=== PATIENT | male | born 1950 | race Caucasian/White ===

== ENCOUNTER 2020-10-27 16:28 | Inpatient (IN) ==
[2020-10-28] MEDS: *HR* OxyCODONE/APAP 5/325 TABLET PO PRN (20:31)
[2020-10-29 04:58] LABS: Basophils % 0.7 %; Eosinophils # 0.2 K/mcL (0.0-0.6); Eosinophils % 3.7 %; Hemoglobin 10.7 g/dL (12.9-16.9); Immature Granulocytes % 0.5 % (0-4); Lymphocytes # 0.8 K/mcL (0.6-4.6); Mean Corpuscular HGB Conc 32.4 g/dL (31.6-35.5); Mean Corpuscular Hemoglobin 26.4 pg (28.0-33.3); Mean Corpuscular Volume 81.5 fL (83.0-100.0); Mean Platelet Volume 9.6 fL (9.4-12.4); Monocytes # 0.3 K/mcL (0.0-1.3); Monocytes % 5.5 %; Neutrophils # 4.6 K/mcL (1.6-8.9); Platelet Count 144 K/mcL (140-400); Red Blood Count 4.05 M/mcL (4.19-5.50); Red Cell Distribution Width 15.4 % (11.5-14.5); Segmented Neutrophils % 75.6 %
[2020-10-29 05:20] LABS: BUN/Creatinine Ratio 22 (6-26); Blood Urea Nitrogen 14 mg/dL (8-23); Calcium 7.8 mg/dL (8.6-10.3); Carbon Dioxide 27 mEq/L (23-29); Chloride 102 mEq/L (98-107); Glucose 95 mg/dL (70-105); Osmolality,Calculated 282 (280-300); Potassium 3.7 mEq/L (3.5-5.1); Sodium 136 mEq/L (136-145); eGFR For African Americans > 60 (> 60); eGFR For Non-African Americans > 60 (> 60)
[2020-10-29] MEDS: *HR* Enoxaparin 40 MG/0.4 ML SYRINGE SQ SCH (05:35)
[2020-10-29] MEDS: *HR* OxyCODONE/APAP 5/325 TABLET PO PRN ×2 (05:35→20:05)
[2020-10-29] MEDS: amLODIPine 5 MG TABLET PO SCH (05:35)
[2020-10-29] MEDS: atenoloL 25 MG TABLET PO SCH (09:47)
[2020-10-30] MEDS: *HR* OxyCODONE/APAP 5/325 TABLET PO PRN ×3 (06:37→20:25)
[2020-10-30] MEDS: *HR* Enoxaparin 40 MG/0.4 ML SYRINGE SQ SCH (06:38)
[2020-10-30] MEDS: atenoloL 25 MG TABLET PO SCH (09:00)
[2020-10-30] MEDS: amLODIPine 5 MG TABLET PO SCH (09:01)
[2020-10-31] MEDS: *HR* Enoxaparin 40 MG/0.4 ML SYRINGE SQ SCH (05:33)
[2020-10-31] MEDS: atenoloL 25 MG TABLET PO SCH (08:56)
[2020-10-31] MEDS: amLODIPine 5 MG TABLET PO SCH (08:57)
[2020-10-31] MEDS: *HR* OxyCODONE/APAP 5/325 TABLET PO PRN ×3 (09:02→21:29)
[2020-10-31] MEDS ORDERED: amLODIPine 5 MG TABLET PO SCH (13:07)
[2020-10-31] MEDS: 0.9 % Sodium Chloride 1,000 ML IVC SCH (15:00)
[2020-11-01] MEDS: 0.9 % Sodium Chloride 1,000 ML IVC SCH ×2 (01:15→11:36)
[2020-11-01 04:25] LABS: Hematocrit 32.6 % (37.5-50.1); Hemoglobin 10.8 g/dL (12.9-16.9); Mean Corpuscular HGB Conc 33.1 g/dL (31.6-35.5); Mean Corpuscular Hemoglobin 26.7 pg (28.0-33.3); Mean Corpuscular Volume 80.5 fL (83.0-100.0); Mean Platelet Volume 9.4 fL (9.4-12.4); Red Blood Count 4.05 M/mcL (4.19-5.50); Red Cell Distribution Width 15.5 % (11.5-14.5); White Blood Count 6.6 K/mcL (4.3-11.1)
[2020-11-01 04:29] LABS: Platelet Count 225 K/mcL (140-400)
[2020-11-01 04:40] LABS: Alanine Aminotransferase 8 Units/L (7-52); Albumin 3.1 g/dL (3.5-5.7); Albumin/Globulin Ratio 1.3 (1.1-2.2); Alkaline Phosphatase 55 Units/L (34-104); Aspartate Amino Transferase 11 Units/L (13-39); BUN/Creatinine Ratio 24 (6-26); Blood Urea Nitrogen 17 mg/dL (8-23); Calcium 8.1 mg/dL (8.6-10.3); Carbon Dioxide 27 mEq/L (23-29); Chloride 101 mEq/L (98-107); Globulin 2.4 g/dL (2.4-3.5); Glucose 101 mg/dL (70-105); Magnesium 1.8 mg/dL (1.6-2.6); Osmolality,Calculated 280 (280-300); Potassium 4.4 mEq/L (3.5-5.1); Sodium 134 mEq/L (136-145); Total Protein 5.5 g/dL (6.4-8.9); eGFR For African Americans > 60 (> 60); eGFR For Non-African Americans > 60 (> 60)
[2020-11-01] MEDS: *HR* Enoxaparin 40 MG/0.4 ML SYRINGE SQ SCH (05:30)
[2020-11-01] MEDS: *HR* OxyCODONE/APAP 5/325 TABLET PO PRN ×2 (09:27→15:36)
[2020-11-02] MEDS: *HR* Enoxaparin 40 MG/0.4 ML SYRINGE SQ SCH (06:23)
[2020-11-02] MEDS: *HR* OxyCODONE/APAP 5/325 TABLET PO PRN ×2 (06:26→14:00)
[2020-11-02] MEDS: Artificial Tears SOLN 15 ML BOTTLE BOTH EYES SCH ×4 (11:01→20:17)
[2020-11-03] MEDS: *HR* Enoxaparin 40 MG/0.4 ML SYRINGE SQ SCH (05:16)
[2020-11-03] MEDS: *HR* OxyCODONE/APAP 5/325 TABLET PO PRN (05:16)
[2020-11-03] MEDS: Artificial Tears SOLN 15 ML BOTTLE BOTH EYES SCH ×4 (08:31→20:17)
[2020-11-04] MEDS: *HR* Enoxaparin 40 MG/0.4 ML SYRINGE SQ SCH (05:21)
[2020-11-04] MEDS: Artificial Tears SOLN 15 ML BOTTLE BOTH EYES SCH ×5 (08:46→20:55)
[2020-11-04] MEDS: polyethylene glycoL 3350 17 GM POWD.PACK PO SCH (17:24)
[2020-11-05 05:09] LABS: Basophils % 0.4 %; Eosinophils # 0.1 K/mcL (0.0-0.6); Eosinophils % 0.8 %; Hematocrit 29.8 % (37.5-50.1); Hemoglobin 9.8 g/dL (12.9-16.9); Immature Granulocytes % 0.5 % (0-4); Lymphocytes % 9.3 %; Mean Corpuscular HGB Conc 32.9 g/dL (31.6-35.5); Mean Corpuscular Hemoglobin 26.5 pg (28.0-33.3); Mean Corpuscular Volume 80.5 fL (83.0-100.0); Mean Platelet Volume 9.2 fL (9.4-12.4); Monocytes # 0.6 K/mcL (0.0-1.3); Monocytes % 5.8 %; Neutrophils # 8.5 K/mcL (1.6-8.9); Platelet Count 324 K/mcL (140-400); Red Cell Distribution Width 15.7 % (11.5-14.5); Segmented Neutrophils % 83.2 %; White Blood Count 10.2 K/mcL (4.3-11.1)
[2020-11-05 05:29] LABS: BUN/Creatinine Ratio 23 (6-26); Blood Urea Nitrogen 18 mg/dL (8-23); Calcium 8.6 mg/dL (8.6-10.3); Carbon Dioxide 26 mEq/L (23-29); Chloride 97 mEq/L (98-107); Glucose 93 mg/dL (70-105); Osmolality,Calculated 276 (280-300); Potassium 3.8 mEq/L (3.5-5.1); Sodium 132 mEq/L (136-145); eGFR For African Americans > 60 (> 60); eGFR For Non-African Americans > 60 (> 60)
[2020-11-05] MEDS: *HR* Enoxaparin 40 MG/0.4 ML SYRINGE SQ SCH (06:41)
[2020-11-05] MEDS: polyethylene glycoL 3350 17 GM POWD.PACK PO SCH (09:18)
[2020-11-05] MEDS: Artificial Tears SOLN 15 ML BOTTLE BOTH EYES SCH ×4 (09:18→22:17)
[2020-11-05] MEDS ORDERED: Bisacodyl 10 MG RECTAL SUPPOSITORY RC PRN (11:05)
[2020-11-05] MEDS: LANSOPRAZOLE 30 MG PO SCH ×2 (17:39→22:18)
[2020-11-06] MEDS: *HR* Enoxaparin 40 MG/0.4 ML SYRINGE SQ SCH (05:55)
[2020-11-06] MEDS: Artificial Tears SOLN 15 ML BOTTLE BOTH EYES SCH ×4 (09:05→20:49)
[2020-11-06] MEDS: LANSOPRAZOLE 30 MG PO SCH ×2 (09:05→18:59)
[2020-11-06] MEDS: polyethylene glycoL 3350 17 GM POWD.PACK PO SCH (09:06)
[2020-11-07] MEDS: *HR* Enoxaparin 40 MG/0.4 ML SYRINGE SQ SCH (05:25)
[2020-11-07] MEDS: polyethylene glycoL 3350 17 GM POWD.PACK PO SCH (10:19)
[2020-11-07] MEDS: Artificial Tears SOLN 15 ML BOTTLE BOTH EYES SCH ×4 (10:19→21:07)
[2020-11-07] MEDS: LANSOPRAZOLE 30 MG PO SCH ×2 (10:19→17:16)
[2020-11-08 05:10] LABS: Basophils # 0.1 K/mcL (0.0-0.2); Basophils % 0.7 %; Eosinophils # 0.1 K/mcL (0.0-0.6); Eosinophils % 1.1 %; Hematocrit 33.2 % (37.5-50.1); Hemoglobin 10.9 g/dL (12.9-16.9); Immature Granulocytes % 0.7 % (0-4); Lymphocytes # 1.2 K/mcL (0.6-4.6); Lymphocytes % 16.1 %; Mean Corpuscular HGB Conc 32.8 g/dL (31.6-35.5); Mean Corpuscular Hemoglobin 26.7 pg (28.0-33.3); Mean Corpuscular Volume 81.4 fL (83.0-100.0); Mean Platelet Volume 8.9 fL (9.4-12.4); Monocytes # 0.4 K/mcL (0.0-1.3); Monocytes % 5.2 %; Neutrophils # 5.6 K/mcL (1.6-8.9); Platelet Count 415 K/mcL (140-400); Red Blood Count 4.08 M/mcL (4.19-5.50); Red Cell Distribution Width 15.8 % (11.5-14.5); Segmented Neutrophils % 76.2 %; White Blood Count 7.3 K/mcL (4.3-11.1)
[2020-11-08 05:24] LABS: BUN/Creatinine Ratio 22 (6-26); Blood Urea Nitrogen 18 mg/dL (8-23); Calcium 8.7 mg/dL (8.6-10.3); Carbon Dioxide 27 mEq/L (23-29); Chloride 96 mEq/L (98-107); Glucose 96 mg/dL (70-105); Osmolality,Calculated 274 (280-300); Potassium 4.1 mEq/L (3.5-5.1); Sodium 131 mEq/L (136-145); eGFR For African Americans > 60 (> 60); eGFR For Non-African Americans > 60 (> 60)
[2020-11-08] MEDS: *HR* Enoxaparin 40 MG/0.4 ML SYRINGE SQ SCH (05:25)
[2020-11-08] MEDS: LANSOPRAZOLE 30 MG PO SCH ×2 (05:31→17:37)
[2020-11-08] MEDS ORDERED: MOM Conc 10 ML UD.LIQ PO PRN (08:36)
[2020-11-08] MEDS: Artificial Tears SOLN 15 ML BOTTLE BOTH EYES SCH ×4 (09:29→21:15)
[2020-11-08] MEDS: polyethylene glycoL 3350 17 GM POWD.PACK PO SCH (09:30)
[2020-11-08] MEDS: Sennosides 8.6 MG TABLET PO SCH ×2 (09:30→21:15)
[2020-11-08] MEDS: 0.9 % Sodium Chloride 1,000 ML IVC SCH (15:26)
[2020-11-09] MEDS: 0.9 % Sodium Chloride 1,000 ML IVC SCH (00:57)
[2020-11-09] MEDS: *HR* Enoxaparin 40 MG/0.4 ML SYRINGE SQ SCH (06:09)
[2020-11-09] MEDS: Sennosides 8.6 MG TABLET PO SCH ×2 (08:32→23:23)
[2020-11-09] MEDS: LANSOPRAZOLE 30 MG PO SCH ×2 (08:32→17:29)
[2020-11-09] MEDS: Artificial Tears SOLN 15 ML BOTTLE BOTH EYES SCH ×4 (08:33→23:23)
[2020-11-10] MEDS: *HR* Enoxaparin 40 MG/0.4 ML SYRINGE SQ SCH (06:34)
[2020-11-10] MEDS: Sennosides 8.6 MG TABLET PO SCH ×2 (09:33→21:47)
[2020-11-10] MEDS: LANSOPRAZOLE 30 MG PO SCH ×2 (09:33→18:01)
[2020-11-10] MEDS: Artificial Tears SOLN 15 ML BOTTLE BOTH EYES SCH ×4 (09:33→21:45)
[2020-11-11] MEDS: *HR* Enoxaparin 40 MG/0.4 ML SYRINGE SQ SCH (06:34)
[2020-11-11] MEDS: LANSOPRAZOLE 30 MG PO SCH ×2 (06:35→17:18)
[2020-11-11 06:56] LABS: Hematocrit 31.3 % (37.5-50.1); Hemoglobin 10.4 g/dL (12.9-16.9); Mean Corpuscular HGB Conc 33.2 g/dL (31.6-35.5); Mean Corpuscular Hemoglobin 26.8 pg (28.0-33.3); Mean Corpuscular Volume 80.7 fL (83.0-100.0); Mean Platelet Volume 8.9 fL (9.4-12.4); Platelet Count 284 K/mcL (140-400); Red Blood Count 3.88 M/mcL (4.19-5.50); Red Cell Distribution Width 15.8 % (11.5-14.5); White Blood Count 3.8 K/mcL (4.3-11.1)
[2020-11-11 07:29] LABS: BUN/Creatinine Ratio 23 (6-26); Blood Urea Nitrogen 19 mg/dL (8-23); Calcium 8.4 mg/dL (8.6-10.3); Carbon Dioxide 22 mEq/L (23-29); Chloride 100 mEq/L (98-107); Glucose 82 mg/dL (70-105); Magnesium 2.1 mg/dL (1.6-2.6); Osmolality,Calculated 277 (280-300); Potassium 3.5 mEq/L (3.5-5.1); Sodium 133 mEq/L (136-145); eGFR For African Americans > 60 (> 60); eGFR For Non-African Americans > 60 (> 60)
[2020-11-11] MEDS: Artificial Tears SOLN 15 ML BOTTLE BOTH EYES SCH ×4 (10:04→21:06)
[2020-11-11] MEDS: Sennosides 8.6 MG TABLET PO SCH ×2 (10:04→21:11)
[2020-11-12] MEDS: *HR* Enoxaparin 40 MG/0.4 ML SYRINGE SQ SCH (06:03)
[2020-11-12] MEDS: Sennosides 8.6 MG TABLET PO SCH ×2 (10:08→21:30)
[2020-11-12] MEDS: Artificial Tears SOLN 15 ML BOTTLE BOTH EYES SCH ×4 (10:08→21:30)
[2020-11-12] MEDS: LANSOPRAZOLE 30 MG PO SCH ×2 (10:08→16:36)
[2020-11-13 05:07] LABS: Hematocrit 31.6 % (37.5-50.1); Hemoglobin 10.4 g/dL (12.9-16.9); Mean Corpuscular HGB Conc 32.9 g/dL (31.6-35.5); Mean Corpuscular Hemoglobin 26.8 pg (28.0-33.3); Mean Corpuscular Volume 81.4 fL (83.0-100.0); Mean Platelet Volume 8.5 fL (9.4-12.4); Platelet Count 195 K/mcL (140-400); Red Blood Count 3.88 M/mcL (4.19-5.50); Red Cell Distribution Width 15.7 % (11.5-14.5)
[2020-11-13] MEDS: *HR* Enoxaparin 40 MG/0.4 ML SYRINGE SQ SCH (05:07)
[2020-11-13] MEDS: LANSOPRAZOLE 30 MG PO SCH ×2 (05:09→17:31)
[2020-11-13 05:21] LABS: BUN/Creatinine Ratio 16 (6-26); Blood Urea Nitrogen 13 mg/dL (8-23); Carbon Dioxide 27 mEq/L (23-29); Chloride 99 mEq/L (98-107); Glucose 89 mg/dL (70-105); Magnesium 1.9 mg/dL (1.6-2.6); Osmolality,Calculated 274 (280-300); Potassium 3.4 mEq/L (3.5-5.1); Sodium 132 mEq/L (136-145); eGFR For African Americans > 60 (> 60); eGFR For Non-African Americans > 60 (> 60)
[2020-11-13] MEDS: Sennosides 8.6 MG TABLET PO SCH ×2 (09:29→22:12)
[2020-11-13] MEDS: Artificial Tears SOLN 15 ML BOTTLE BOTH EYES SCH ×4 (09:29→22:11)
[2020-11-13] MEDS: 0.9 % Sodium Chloride 1,000 ML IVC SCH (14:32)
[2020-11-14] MEDS: 0.9 % Sodium Chloride 1,000 ML IVC SCH (01:07)
[2020-11-14] MEDS: *HR* Enoxaparin 40 MG/0.4 ML SYRINGE SQ SCH (06:04)
[2020-11-14] MEDS: LANSOPRAZOLE 30 MG PO SCH ×2 (06:32→16:37)
[2020-11-14] MEDS: Artificial Tears SOLN 15 ML BOTTLE BOTH EYES SCH ×4 (09:32→21:02)
[2020-11-14] MEDS: Sennosides 8.6 MG TABLET PO SCH ×2 (09:33→21:02)
[2020-11-14 10:39] LABS: Basophils % 0.4 %; Eosinophils % 0.7 %; Hematocrit 32.7 % (37.5-50.1); Hemoglobin 10.8 g/dL (12.9-16.9); Immature Granulocytes % 0.4 % (0-4); Lymphocytes # 0.7 K/mcL (0.6-4.6); Lymphocytes % 25.2 %; Mean Corpuscular Hemoglobin 26.8 pg (28.0-33.3); Mean Corpuscular Volume 81.1 fL (83.0-100.0); Mean Platelet Volume 8.8 fL (9.4-12.4); Monocytes # 0.2 K/mcL (0.0-1.3); Monocytes % 5.8 %; Neutrophils # 1.9 K/mcL (1.6-8.9); Platelet Count 165 K/mcL (140-400); Red Blood Count 4.03 M/mcL (4.19-5.50); Red Cell Distribution Width 15.5 % (11.5-14.5); Segmented Neutrophils % 67.5 %; White Blood Count 2.8 K/mcL (4.3-11.1)
[2020-11-14 10:50] LABS: BUN/Creatinine Ratio 17 (6-26); Blood Urea Nitrogen 14 mg/dL (8-23); Calcium 7.9 mg/dL (8.6-10.3); Carbon Dioxide 25 mEq/L (23-29); Chloride 100 mEq/L (98-107); Glucose 97 mg/dL (70-105); Osmolality,Calculated 274 (280-300); Potassium 3.2 mEq/L (3.5-5.1); Sodium 132 mEq/L (136-145); eGFR For African Americans > 60 (> 60); eGFR For Non-African Americans > 60 (> 60)
[2020-11-14] MEDS: Aspirin Enteric Coated 81 MG Tablet PO SCH (14:57)
[2020-11-15 05:01] LABS: Basophils % 0.4 %; Eosinophils % 0.4 %; Hematocrit 31.5 % (37.5-50.1); Hemoglobin 10.4 g/dL (12.9-16.9); Immature Granulocytes % 0.9 % (0-4); Lymphocytes # 0.6 K/mcL (0.6-4.6); Lymphocytes % 28.6 %; Mean Corpuscular Hemoglobin 26.6 pg (28.0-33.3); Mean Corpuscular Volume 80.6 fL (83.0-100.0); Mean Platelet Volume 8.8 fL (9.4-12.4); Monocytes # 0.1 K/mcL (0.0-1.3); Monocytes % 5.4 %; Neutrophils # 1.4 K/mcL (1.6-8.9); Platelet Count 163 K/mcL (140-400); Red Blood Count 3.91 M/mcL (4.19-5.50); Red Cell Distribution Width 15.6 % (11.5-14.5); Segmented Neutrophils % 64.3 %; White Blood Count 2.2 K/mcL (4.3-11.1)
[2020-11-15 05:16] LABS: BUN/Creatinine Ratio 18 (6-26); Blood Urea Nitrogen 14 mg/dL (8-23); Calcium 7.8 mg/dL (8.6-10.3); Carbon Dioxide 26 mEq/L (23-29); Chloride 100 mEq/L (98-107); Glucose 86 mg/dL (70-105); Magnesium 1.8 mg/dL (1.6-2.6); Osmolality,Calculated 274 (280-300); Potassium 3.5 mEq/L (3.5-5.1); Sodium 132 mEq/L (136-145); eGFR For African Americans > 60 (> 60); eGFR For Non-African Americans > 60 (> 60)
[2020-11-15] MEDS: *HR* Enoxaparin 40 MG/0.4 ML SYRINGE SQ SCH (06:42)
[2020-11-15] MEDS: Aspirin Enteric Coated 81 MG Tablet PO SCH (07:58)
[2020-11-15] MEDS: Artificial Tears SOLN 15 ML BOTTLE BOTH EYES SCH ×4 (07:59→20:00)
[2020-11-15] MEDS: LANSOPRAZOLE 30 MG PO SCH ×2 (07:59→17:34)
[2020-11-15] MEDS: Sennosides 8.6 MG TABLET PO SCH ×2 (07:59→20:00)
[2020-11-15] MEDS ORDERED: Aspirin Enteric Coated 81 MG Tablet PO SCH (09:00)
[2020-11-15 13:45] LABS: Bilirubin,Urine Negative (Negative); Blood,Urine Small (Negative); Clarity,Urine Slightly Cloudy (Clear); Color,Urine Yellow (Yellow); Glucose,Urine (UA) Normal (Normal); Ketones,Urine Negative (Negative); Leukocyte Esterase,Urine Trace (Negative); Nitrite,Urine Positive (Negative); Protein,Urine Negative (Neg-Trace); Specific Gravity,Urine 1.025 (1.010-1.025); Urobilinogen,Urine Normal (Normal)
[2020-11-15 13:47] LABS: Bacteria,Urine Many per hpf (None-Few); RBC,Urine 0-3 per hpf (0-3); WBC,Urine 15-30 per hpf (0-3)
[2020-11-15] MEDS: Dexamethasone 4 MG/ML VIAL IVP SCH (15:10)
[2020-11-15] MEDS: Piperacillin/Tazobactam 3.375 GM in 0.9 % Sodium Chloride Mini Bag 100 ML IVPB SCH (15:11)
[2020-11-15] MEDS ORDERED: Amoxicillin/Clavulanate 400 MG/5 ML UDC PO SCH (18:00)
[2020-11-16] MEDS: Piperacillin/Tazobactam 3.375 GM in 0.9 % Sodium Chloride Mini Bag 100 ML IVPB SCH ×3 (01:00→17:27)
[2020-11-16] MEDS: *HR* Enoxaparin 40 MG/0.4 ML SYRINGE SQ SCH (05:10)
[2020-11-16 09:23] LABS: Basophils % 0.4 %; Hematocrit 34.9 % (37.5-50.1); Hemoglobin 11.5 g/dL (12.9-16.9); Immature Granulocytes % 0.7 % (0-4); Lymphocytes # 0.8 K/mcL (0.6-4.6); Lymphocytes % 14.9 %; Mean Corpuscular Hemoglobin 26.5 pg (28.0-33.3); Mean Corpuscular Volume 80.4 fL (83.0-100.0); Monocytes # 0.2 K/mcL (0.0-1.3); Monocytes % 3.5 %; Platelet Count 163 K/mcL (140-400); Red Blood Count 4.34 M/mcL (4.19-5.50); Red Cell Distribution Width 15.6 % (11.5-14.5); Segmented Neutrophils % 80.5 %; White Blood Count 5.4 K/mcL (4.3-11.1)
[2020-11-16] MEDS: LANSOPRAZOLE 30 MG PO SCH ×2 (09:23→17:28)
[2020-11-16] MEDS: Dexamethasone 4 MG/ML VIAL IVP SCH (09:24)
[2020-11-16 09:28] LABS: Neutrophils # 4.4 K/mcL (1.6-8.9)
[2020-11-16] MEDS: Artificial Tears SOLN 15 ML BOTTLE BOTH EYES SCH ×4 (09:32→21:58)
[2020-11-16] MEDS: Aspirin Enteric Coated 81 MG Tablet PO SCH (09:32)
[2020-11-16] MEDS: Sennosides 8.6 MG TABLET PO SCH ×2 (09:33→21:59)
[2020-11-16 09:52] LABS: BUN/Creatinine Ratio 20 (6-26); Blood Urea Nitrogen 16 mg/dL (8-23); Calcium 8.1 mg/dL (8.6-10.3); Carbon Dioxide 24 mEq/L (23-29); Chloride 99 mEq/L (98-107); Glucose 85 mg/dL (70-105); Osmolality,Calculated 274 (280-300); Potassium 3.6 mEq/L (3.5-5.1); Sodium 132 mEq/L (136-145); eGFR For African Americans > 60 (> 60); eGFR For Non-African Americans > 60 (> 60)
[2020-11-16] MEDS ORDERED: polyethylene glycoL 3350 17 GM POWD.PACK PO PRN (18:22)
[2020-11-17] MEDS: Piperacillin/Tazobactam 3.375 GM in 0.9 % Sodium Chloride Mini Bag 100 ML IVPB SCH ×4 (01:00→23:50)
[2020-11-17] MEDS: *HR* Enoxaparin 40 MG/0.4 ML SYRINGE SQ SCH (05:46)
[2020-11-17] MEDS: Sennosides 8.6 MG TABLET PO SCH ×2 (08:12→23:49)
[2020-11-17] MEDS: Aspirin Enteric Coated 81 MG Tablet PO SCH (08:12)
[2020-11-17] MEDS: LANSOPRAZOLE 30 MG PO SCH ×2 (08:14→16:12)
[2020-11-17] MEDS: Artificial Tears SOLN 15 ML BOTTLE BOTH EYES SCH ×4 (08:14→23:49)
[2020-11-17] MEDS: Dexamethasone 4 MG/ML VIAL IVP SCH (09:41)
[2020-11-18] MEDS: *HR* Enoxaparin 40 MG/0.4 ML SYRINGE SQ SCH (06:47)
[2020-11-18] MEDS: LANSOPRAZOLE 30 MG PO SCH ×2 (06:47→17:12)
[2020-11-18] MEDS: Aspirin Enteric Coated 81 MG Tablet PO SCH (09:42)
[2020-11-18] MEDS: Dexamethasone 4 MG/ML VIAL IVP SCH (09:42)
[2020-11-18] MEDS: Piperacillin/Tazobactam 3.375 GM in 0.9 % Sodium Chloride Mini Bag 100 ML IVPB SCH ×2 (09:43→17:11)
[2020-11-18] MEDS: Artificial Tears SOLN 15 ML BOTTLE BOTH EYES SCH ×4 (09:44→22:00)
[2020-11-18] MEDS: Sennosides 8.6 MG TABLET PO SCH ×2 (09:48→22:00)
[2020-11-19] MEDS: Piperacillin/Tazobactam 3.375 GM in 0.9 % Sodium Chloride Mini Bag 100 ML IVPB SCH ×3 (01:20→16:30)
[2020-11-19] MEDS: LANSOPRAZOLE 30 MG PO SCH ×2 (05:33→16:31)
[2020-11-19] MEDS: *HR* Enoxaparin 40 MG/0.4 ML SYRINGE SQ SCH (05:35)
[2020-11-19 05:37] LABS: Hematocrit 33.4 % (37.5-50.1); Hemoglobin 10.8 g/dL (12.9-16.9); Mean Corpuscular HGB Conc 32.3 g/dL (31.6-35.5); Mean Corpuscular Hemoglobin 26.7 pg (28.0-33.3); Mean Corpuscular Volume 82.5 fL (83.0-100.0); Mean Platelet Volume 11.5 fL (9.4-12.4); Platelet Count 158 K/mcL (140-400); Red Blood Count 4.05 M/mcL (4.19-5.50); Red Cell Distribution Width 15.5 % (11.5-14.5); White Blood Count 2.4 K/mcL (4.3-11.1)
[2020-11-19 06:43] LABS: Alanine Aminotransferase 6 Units/L (7-52); Albumin 3.2 g/dL (3.5-5.7); Albumin/Globulin Ratio 1.2 (1.1-2.2); Alkaline Phosphatase 71 Units/L (34-104); Aspartate Amino Transferase 16 Units/L (13-39); BUN/Creatinine Ratio 18 (6-26); Bilirubin,Total 0.5 mg/dL (0.3-1.0); Blood Urea Nitrogen 12 mg/dL (8-23); Calcium 7.6 mg/dL (8.6-10.3); Carbon Dioxide 20 mEq/L (23-29); Chloride 103 mEq/L (98-107); Globulin 2.7 g/dL (2.4-3.5); Glucose 76 mg/dL (70-105); Magnesium 1.9 mg/dL (1.6-2.6); Osmolality,Calculated 275 (280-300); Potassium 3.9 mEq/L (3.5-5.1); Sodium 133 mEq/L (136-145); Total Protein 5.9 g/dL (6.4-8.9); eGFR For African Americans > 60 (> 60); eGFR For Non-African Americans > 60 (> 60)
[2020-11-19] MEDS: Dexamethasone 4 MG/ML VIAL IVP SCH (09:05)
[2020-11-19] MEDS: Aspirin Enteric Coated 81 MG Tablet PO SCH (09:05)
[2020-11-19] MEDS: Sennosides 8.6 MG TABLET PO SCH ×2 (09:18→21:23)
[2020-11-19] MEDS: Artificial Tears SOLN 15 ML BOTTLE BOTH EYES SCH ×4 (09:18→21:23)
[2020-11-19 18:13] LABS: C-Reactive Protein 52 mg/L (Less than 10)
[2020-11-19 18:47] LABS: Ferritin 133 ng/mL (20-250)
[2020-11-20] MEDS: Piperacillin/Tazobactam 3.375 GM in 0.9 % Sodium Chloride Mini Bag 100 ML IVPB SCH ×3 (00:50→16:56)
[2020-11-20] MEDS: LANSOPRAZOLE 30 MG PO SCH ×2 (05:41→16:57)
[2020-11-20] MEDS: *HR* Enoxaparin 40 MG/0.4 ML SYRINGE SQ SCH (05:41)
[2020-11-20] MEDS: Aspirin Enteric Coated 81 MG Tablet PO SCH (09:47)
[2020-11-20] MEDS: Artificial Tears SOLN 15 ML BOTTLE BOTH EYES SCH ×4 (09:47→23:03)
[2020-11-20] MEDS: Dexamethasone 4 MG/ML VIAL IVP SCH (09:47)
[2020-11-20] MEDS: Sennosides 8.6 MG TABLET PO SCH ×2 (09:48→22:58)
[2020-11-21] MEDS: Piperacillin/Tazobactam 3.375 GM in 0.9 % Sodium Chloride Mini Bag 100 ML IVPB SCH ×4 (01:00→22:51)
[2020-11-21] MEDS: *HR* Enoxaparin 40 MG/0.4 ML SYRINGE SQ SCH (05:39)
[2020-11-21] MEDS: LANSOPRAZOLE 30 MG PO SCH ×2 (05:41→18:10)
[2020-11-21] MEDS: Sennosides 8.6 MG TABLET PO SCH ×2 (09:32→22:53)
[2020-11-21] MEDS: Aspirin Enteric Coated 81 MG Tablet PO SCH (09:32)
[2020-11-21] MEDS: Dexamethasone 4 MG/ML VIAL IVP SCH (09:32)
[2020-11-21] MEDS: Artificial Tears SOLN 15 ML BOTTLE BOTH EYES SCH ×4 (10:04→22:53)
[2020-11-21 11:14] LABS: Basophils % 0.3 %; Eosinophils % 0.1 %; Hematocrit 34.2 % (37.5-50.1); Hemoglobin 11.2 g/dL (12.9-16.9); Immature Granulocytes % 1.3 % (0-4); Lymphocytes # 0.7 K/mcL (0.6-4.6); Lymphocytes % 8.6 %; Mean Corpuscular HGB Conc 32.7 g/dL (31.6-35.5); Mean Corpuscular Hemoglobin 26.3 pg (28.0-33.3); Mean Corpuscular Volume 80.3 fL (83.0-100.0); Mean Platelet Volume 8.9 fL (9.4-12.4); Monocytes # 0.2 K/mcL (0.0-1.3); Monocytes % 1.9 %; Platelet Count 220 K/mcL (140-400); Red Blood Count 4.26 M/mcL (4.19-5.50); Red Cell Distribution Width 15.6 % (11.5-14.5); Segmented Neutrophils % 87.8 %; White Blood Count 7.8 K/mcL (4.3-11.1)
[2020-11-21 11:21] LABS: Neutrophils # 6.9 K/mcL (1.6-8.9)
[2020-11-21 11:32] LABS: BUN/Creatinine Ratio 19 (6-26); Blood Urea Nitrogen 14 mg/dL (8-23); Calcium 7.4 mg/dL (8.6-10.3); Carbon Dioxide 22 mEq/L (23-29); Chloride 105 mEq/L (98-107); Glucose 89 mg/dL (70-105); Osmolality,Calculated 288 (280-300); Sodium 139 mEq/L (136-145); eGFR For African Americans > 60 (> 60); eGFR For Non-African Americans > 60 (> 60)
[2020-11-21] MEDS: Potassium Chloride Elixir 20 MEQ/15 ML UDC GTUBE SCH ×2 (13:09→22:53)
[2020-11-21 20:35] LABS: C-Reactive Protein 25 mg/L (Less than 10)
[2020-11-22] MEDS: LANSOPRAZOLE 30 MG PO SCH ×2 (06:17→16:21)
[2020-11-22] MEDS: *HR* Enoxaparin 40 MG/0.4 ML SYRINGE SQ SCH (06:17)
[2020-11-22 08:01] LABS: Basophils % 0.5 %; Eosinophils % 0.5 %; Hematocrit 34.3 % (37.5-50.1); Hemoglobin 11.2 g/dL (12.9-16.9); Immature Granulocytes % 1.9 % (0-4); Lymphocytes # 1.1 K/mcL (0.6-4.6); Lymphocytes % 26.1 %; Mean Corpuscular HGB Conc 32.7 g/dL (31.6-35.5); Mean Corpuscular Hemoglobin 26.4 pg (28.0-33.3); Mean Corpuscular Volume 80.9 fL (83.0-100.0); Mean Platelet Volume 8.7 fL (9.4-12.4); Monocytes # 0.3 K/mcL (0.0-1.3); Neutrophils # 2.7 K/mcL (1.6-8.9); Platelet Count 220 K/mcL (140-400); Red Blood Count 4.24 M/mcL (4.19-5.50); Red Cell Distribution Width 15.5 % (11.5-14.5); White Blood Count 4.2 K/mcL (4.3-11.1)
[2020-11-22 08:40] LABS: Platelet Estimate Normal (Normal)
[2020-11-22] MEDS: Aspirin Enteric Coated 81 MG Tablet PO SCH (09:00)
[2020-11-22] MEDS: Potassium Chloride Elixir 20 MEQ/15 ML UDC GTUBE SCH ×2 (09:00→19:45)
[2020-11-22] MEDS: Dexamethasone 4 MG/ML VIAL IVP SCH (09:00)
[2020-11-22] MEDS: Sennosides 8.6 MG TABLET PO SCH ×3 (09:00→19:48)
[2020-11-22] MEDS: Piperacillin/Tazobactam 3.375 GM in 0.9 % Sodium Chloride Mini Bag 100 ML IVPB SCH ×2 (09:01→16:19)
[2020-11-22] MEDS: Artificial Tears SOLN 15 ML BOTTLE BOTH EYES SCH ×4 (09:49→19:48)
[2020-11-22 10:08] LABS: BUN/Creatinine Ratio 16 (6-26); Blood Urea Nitrogen 12 mg/dL (8-23); Calcium 7.8 mg/dL (8.6-10.3); Carbon Dioxide 21 mEq/L (23-29); Chloride 105 mEq/L (98-107); Glucose 84 mg/dL (70-105); Osmolality,Calculated 283 (280-300); Potassium 3.3 mEq/L (3.5-5.1); Sodium 137 mEq/L (136-145); eGFR For African Americans > 60 (> 60); eGFR For Non-African Americans > 60 (> 60)
[2020-11-22] MEDS ORDERED: cloNIDine HCL 0.1 MG TABLET PO ONE (21:40)
[2020-11-23] MEDS: *HR* Enoxaparin 40 MG/0.4 ML SYRINGE SQ SCH (05:34)
[2020-11-23] MEDS: Artificial Tears SOLN 15 ML BOTTLE BOTH EYES SCH ×4 (09:47→22:20)
[2020-11-23] MEDS: Potassium Chloride Elixir 20 MEQ/15 ML UDC GTUBE SCH ×2 (09:49→22:13)
[2020-11-23] MEDS: Aspirin Enteric Coated 81 MG Tablet PO SCH (09:50)
[2020-11-23] MEDS: LANSOPRAZOLE 30 MG PO SCH ×2 (09:51→16:35)
[2020-11-23] MEDS: Sennosides 8.6 MG TABLET PO SCH ×2 (10:06→22:21)
[2020-11-23] MEDS ORDERED: amLODIPine 5 MG TABLET PO PRN (15:12)
[2020-11-23] MEDS ORDERED: Perflutren Lipid Microsphere 1.3 ML in 0.9 % Sodium Chloride 8.7 ML IVP PRN (15:29)
[2020-11-23 16:11] LABS: Basophils % 0.4 %; Eosinophils % 0.4 %; Hematocrit 35.2 % (37.5-50.1); Hemoglobin 11.7 g/dL (12.9-16.9); Immature Granulocytes % 1.7 % (0-4); Lymphocytes # 1.3 K/mcL (0.6-4.6); Lymphocytes % 16.1 %; Mean Corpuscular HGB Conc 33.2 g/dL (31.6-35.5); Mean Corpuscular Hemoglobin 26.3 pg (28.0-33.3); Mean Corpuscular Volume 79.1 fL (83.0-100.0); Mean Platelet Volume 8.8 fL (9.4-12.4); Monocytes # 0.4 K/mcL (0.0-1.3); Monocytes % 4.6 %; Platelet Count 268 K/mcL (140-400); Red Blood Count 4.45 M/mcL (4.19-5.50); Red Cell Distribution Width 15.7 % (11.5-14.5); Segmented Neutrophils % 76.8 %; White Blood Count 7.8 K/mcL (4.3-11.1)
[2020-11-23 16:22] LABS: BUN/Creatinine Ratio 25 (6-26); Blood Urea Nitrogen 17 mg/dL (8-23); Calcium 8.1 mg/dL (8.6-10.3); Carbon Dioxide 21 mEq/L (23-29); Chloride 102 mEq/L (98-107); Glucose 106 mg/dL (70-105); Osmolality,Calculated 276 (280-300); Sodium 132 mEq/L (136-145); eGFR For African Americans > 60 (> 60); eGFR For Non-African Americans > 60 (> 60)
[2020-11-24 05:15] LABS: Basophils % 0.3 %; Eosinophils # 0.1 K/mcL (0.0-0.6); Eosinophils % 1.1 %; Hematocrit 36.3 % (37.5-50.1); Immature Granulocytes % 2.2 % (0-4); Lymphocytes # 1.3 K/mcL (0.6-4.6); Lymphocytes % 19.9 %; Mean Corpuscular HGB Conc 33.1 g/dL (31.6-35.5); Mean Corpuscular Hemoglobin 26.5 pg (28.0-33.3); Mean Corpuscular Volume 80.3 fL (83.0-100.0); Mean Platelet Volume 8.7 fL (9.4-12.4); Monocytes # 0.3 K/mcL (0.0-1.3); Monocytes % 4.8 %; Neutrophils # 4.5 K/mcL (1.6-8.9); Platelet Count 261 K/mcL (140-400); Red Blood Count 4.52 M/mcL (4.19-5.50); Red Cell Distribution Width 15.9 % (11.5-14.5); Segmented Neutrophils % 71.7 %; White Blood Count 6.3 K/mcL (4.3-11.1)
[2020-11-24] MEDS: *HR* Enoxaparin 40 MG/0.4 ML SYRINGE SQ SCH (05:20)
[2020-11-24 05:32] LABS: BUN/Creatinine Ratio 22 (6-26); Blood Urea Nitrogen 15 mg/dL (8-23); Calcium 8.2 mg/dL (8.6-10.3); Carbon Dioxide 23 mEq/L (23-29); Chloride 103 mEq/L (98-107); Glucose 82 mg/dL (70-105); Osmolality,Calculated 280 (280-300); Potassium 4.2 mEq/L (3.5-5.1); Sodium 135 mEq/L (136-145); eGFR For African Americans > 60 (> 60); eGFR For Non-African Americans > 60 (> 60)
[2020-11-24] MEDS: LANSOPRAZOLE 30 MG PO SCH ×2 (09:52→17:40)
[2020-11-24] MEDS: Aspirin Enteric Coated 81 MG Tablet PO SCH (09:52)
[2020-11-24] MEDS: Potassium Chloride Elixir 20 MEQ/15 ML UDC GTUBE SCH (09:52)
[2020-11-24] MEDS: Sennosides 8.6 MG TABLET PO SCH ×2 (09:53→23:24)
[2020-11-24] MEDS: Artificial Tears SOLN 15 ML BOTTLE BOTH EYES SCH ×4 (10:09→23:21)
[2020-11-24 13:42] LABS: C-Reactive Protein 12 mg/L (Less than 10)
[2020-11-25] MEDS: *HR* Enoxaparin 40 MG/0.4 ML SYRINGE SQ SCH (06:06)
[2020-11-25] MEDS: LANSOPRAZOLE 30 MG PO SCH (06:06)
[2020-11-25] MEDS: Aspirin Enteric Coated 81 MG Tablet PO SCH (09:03)
[2020-11-25] MEDS: Sennosides 8.6 MG TABLET PO SCH (09:04)
[2020-11-25] MEDS: Artificial Tears SOLN 15 ML BOTTLE BOTH EYES SCH (09:04)
[2020-11-25 11:50] VITALS: BP 110/74
== END 2020-11-25 12:14 | disposition home health service (06) | DRG 559 ==
LOC: INPGRE 10-28 16:29
PROVIDERS: ADMIT Family Medicine; ATTEND Family Medicine

== ENCOUNTER 2022-04-17 12:53 | Inpatient (IN) ==
[2022-04-17] MEDS: Ondansetron 4 MG/2 ML VIAL IVP PRN (21:53)
[2022-04-18] MEDS: *HR* OxyCODONE/APAP 5/325 TABLET PO PRN (02:59)
[2022-04-18 05:43] LABS: Basophils % 0.4 %; Eosinophils # 0.1 K/mcL (0.0-0.6); Eosinophils % 1.3 %; Hematocrit 36.4 % (37.5-50.1); Hemoglobin 12.2 g/dL (12.9-16.9); Immature Granulocytes % 0.4 % (0-4); Lymphocytes # 0.8 K/mcL (0.6-4.6); Mean Corpuscular HGB Conc 33.5 g/dL (31.6-35.5); Mean Corpuscular Hemoglobin 26.9 pg (28.0-33.3); Mean Corpuscular Volume 80.2 fL (83.0-100.0); Mean Platelet Volume 9.5 fL (9.4-12.4); Monocytes # 0.5 K/mcL (0.0-1.3); Monocytes % 6.7 %; Neutrophils # 5.6 K/mcL (1.6-8.9); Platelet Count 195 K/mcL (140-400); Red Blood Count 4.54 M/mcL (4.19-5.50); Red Cell Distribution Width 15.2 % (11.5-14.5); Segmented Neutrophils % 79.2 %
[2022-04-18 05:59] LABS: Alanine Aminotransferase 5 Units/L (7-52); Albumin 3.6 g/dL (3.5-5.7); Albumin/Globulin Ratio 1.6 (1.1-2.2); Alkaline Phosphatase 125 Units/L (34-104); Aspartate Amino Transferase 10 Units/L (13-39); BUN/Creatinine Ratio 24 (6-26); Bilirubin,Total 0.9 mg/dL (0.3-1.0); Blood Urea Nitrogen 26 mg/dL (8-23); Calcium 8.8 mg/dL (8.6-10.3); Carbon Dioxide 23 mEq/L (23-29); Chloride 99 mEq/L (98-107); Globulin 2.3 g/dL (2.4-3.5); Glucose 95 mg/dL (70-105); Magnesium 2.1 mg/dL (1.6-2.6); Osmolality,Calculated 279 (280-300); Potassium 4.1 mEq/L (3.5-5.1); Sodium 132 mEq/L (136-145); Total Protein 5.9 g/dL (6.4-8.9); eGFR For African Americans > 60 (> 60); eGFR For Non-African Americans > 60 (> 60)
[2022-04-18] MEDS ORDERED: amLODIPine 5 MG TABLET PO SCH (09:00)
[2022-04-18] MEDS: Ondansetron 4 MG/2 ML VIAL IVP PRN (09:34)
[2022-04-18] MEDS: Cyanocobalamin (B-12) 1,000 MCG TABLET PO SCH (09:35)
[2022-04-18] MEDS: Aspirin 81 MG TAB.CHEW PO SCH (09:35)
[2022-04-18] MEDS: Acetaminophen 325 MG TABLET PO PRN (13:29)
[2022-04-18] MEDS ORDERED: Ondansetron 4 MG/2 ML VIAL IVP PRN ×2 (13:54→15:35)
[2022-04-19] MEDS: *HR* OxyCODONE/APAP 5/325 TABLET PO PRN ×3 (03:51→22:29)
[2022-04-19] MEDS: *HR* Enoxaparin 40 MG/0.4 ML SYRINGE SQ SCH (06:03)
[2022-04-19] MEDS: Cyanocobalamin (B-12) 1,000 MCG TABLET PO SCH (07:35)
[2022-04-19] MEDS: Aspirin 81 MG TAB.CHEW PO SCH (07:35)
[2022-04-19] MEDS: atenoloL 25 MG TABLET PO SCH (12:21)
[2022-04-20] MEDS: *HR* Enoxaparin 40 MG/0.4 ML SYRINGE SQ SCH (06:26)
[2022-04-20] MEDS: Cyanocobalamin (B-12) 1,000 MCG TABLET PO SCH (08:25)
[2022-04-20] MEDS: atenoloL 25 MG TABLET PO SCH (08:25)
[2022-04-20] MEDS: Aspirin 81 MG TAB.CHEW PO SCH (08:25)
[2022-04-20] MEDS: *HR* OxyCODONE/APAP 5/325 TABLET PO PRN ×2 (12:49→19:40)
[2022-04-20] MEDS ORDERED: polyethylene glycoL 3350 17 GM POWD.PACK PO PRN (15:26)
[2022-04-20] MEDS: Sennosides 8.6 MG TABLET PO PRN ×2 (16:20→19:38)
[2022-04-21 04:41] LABS: Hematocrit 33.3 % (37.5-50.1); Hemoglobin 11.2 g/dL (12.9-16.9); Mean Corpuscular HGB Conc 33.6 g/dL (31.6-35.5); Mean Corpuscular Hemoglobin 27.2 pg (28.0-33.3); Mean Corpuscular Volume 80.8 fL (83.0-100.0); Mean Platelet Volume 9.4 fL (9.4-12.4); Platelet Count 184 K/mcL (140-400); Red Blood Count 4.12 M/mcL (4.19-5.50); Red Cell Distribution Width 15.1 % (11.5-14.5); White Blood Count 6.3 K/mcL (4.3-11.1)
[2022-04-21 04:56] LABS: Alanine Aminotransferase 6 Units/L (7-52); Albumin 3.4 g/dL (3.5-5.7); Albumin/Globulin Ratio 1.5 (1.1-2.2); Alkaline Phosphatase 111 Units/L (34-104); Aspartate Amino Transferase 9 Units/L (13-39); BUN/Creatinine Ratio 27 (6-26); Bilirubin,Total 0.8 mg/dL (0.3-1.0); Blood Urea Nitrogen 25 mg/dL (8-23); Calcium 8.5 mg/dL (8.6-10.3); Carbon Dioxide 25 mEq/L (23-29); Chloride 99 mEq/L (98-107); Globulin 2.2 g/dL (2.4-3.5); Glucose 98 mg/dL (70-105); Magnesium 1.8 mg/dL (1.6-2.6); Osmolality,Calculated 278 (280-300); Sodium 132 mEq/L (136-145); Total Protein 5.6 g/dL (6.4-8.9); eGFR For African Americans > 60 (> 60); eGFR For Non-African Americans > 60 (> 60)
[2022-04-21] MEDS: *HR* Enoxaparin 40 MG/0.4 ML SYRINGE SQ SCH (05:24)
[2022-04-21] MEDS: *HR* OxyCODONE/APAP 5/325 TABLET PO PRN (05:24)
[2022-04-21] MEDS: Sennosides 8.6 MG TABLET PO PRN (08:07)
[2022-04-21] MEDS: Aspirin 81 MG TAB.CHEW PO SCH (08:07)
[2022-04-21] MEDS: Cyanocobalamin (B-12) 1,000 MCG TABLET PO SCH (08:07)
[2022-04-21] MEDS: atenoloL 25 MG TABLET PO SCH ×2 (10:16→11:21)
[2022-04-21] MEDS: Acetaminophen 325 MG TABLET PO PRN (18:34)
[2022-04-22] MEDS: *HR* OxyCODONE/APAP 5/325 TABLET PO PRN ×2 (01:11→23:01)
[2022-04-22] MEDS ORDERED: 0.9 % Sodium Chloride 500 ML IVC ONE (01:34)
[2022-04-22] MEDS: *HR* Enoxaparin 40 MG/0.4 ML SYRINGE SQ SCH (06:08)
[2022-04-22] MEDS: atenoloL 25 MG TABLET PO SCH (08:45)
[2022-04-22] MEDS: Cyanocobalamin (B-12) 1,000 MCG TABLET PO SCH (08:53)
[2022-04-22] MEDS: Aspirin 81 MG TAB.CHEW PO SCH (08:53)
[2022-04-22] MEDS: Acetaminophen 325 MG TABLET PO PRN (19:31)
[2022-04-22] MEDS: Sennosides 8.6 MG TABLET PO PRN (19:31)
[2022-04-23] MEDS: *HR* Enoxaparin 40 MG/0.4 ML SYRINGE SQ SCH (04:31)
[2022-04-23] MEDS: atenoloL 25 MG TABLET PO SCH (07:32)
[2022-04-23] MEDS: Aspirin 81 MG TAB.CHEW PO SCH (08:02)
[2022-04-23] MEDS: Cyanocobalamin (B-12) 1,000 MCG TABLET PO SCH (08:03)
[2022-04-23] MEDS: *HR* OxyCODONE/APAP 5/325 TABLET PO PRN (19:47)
[2022-04-23] MEDS: Sennosides 8.6 MG TABLET PO PRN (19:47)
[2022-04-23] MEDS: Acetaminophen 325 MG TABLET PO PRN (22:18)
[2022-04-24] MEDS: *HR* Enoxaparin 40 MG/0.4 ML SYRINGE SQ SCH (04:30)
[2022-04-24 04:49] LABS: Hematocrit 32.9 % (37.5-50.1); Hemoglobin 10.9 g/dL (12.9-16.9); Mean Corpuscular HGB Conc 33.1 g/dL (31.6-35.5); Mean Corpuscular Volume 81.6 fL (83.0-100.0); Mean Platelet Volume 9.2 fL (9.4-12.4); Platelet Count 194 K/mcL (140-400); Red Blood Count 4.03 M/mcL (4.19-5.50); Red Cell Distribution Width 14.9 % (11.5-14.5); White Blood Count 5.3 K/mcL (4.3-11.1)
[2022-04-24 05:02] LABS: BUN/Creatinine Ratio 24 (6-26); Blood Urea Nitrogen 21 mg/dL (8-23); Calcium 8.8 mg/dL (8.6-10.3); Carbon Dioxide 26 mEq/L (23-29); Chloride 101 mEq/L (98-107); Glucose 92 mg/dL (70-105); Magnesium 1.6 mg/dL (1.6-2.6); Osmolality,Calculated 283 (280-300); Sodium 135 mEq/L (136-145); eGFR For African Americans > 60 (> 60); eGFR For Non-African Americans > 60 (> 60)
[2022-04-24] MEDS: Acetaminophen 325 MG TABLET PO PRN (08:08)
[2022-04-24] MEDS: atenoloL 25 MG TABLET PO SCH (08:09)
[2022-04-24] MEDS: Aspirin 81 MG TAB.CHEW PO SCH (08:09)
[2022-04-24] MEDS: Cyanocobalamin (B-12) 1,000 MCG TABLET PO SCH (08:09)
[2022-04-24] MEDS ORDERED: amLODIPine 5 MG TABLET PO SCH (13:45)
[2022-04-25] MEDS: *HR* Enoxaparin 40 MG/0.4 ML SYRINGE SQ SCH (06:01)
[2022-04-25] MEDS: Cyanocobalamin (B-12) 1,000 MCG TABLET PO SCH (09:09)
[2022-04-25] MEDS: atenoloL 25 MG TABLET PO SCH (09:09)
[2022-04-25] MEDS: Aspirin 81 MG TAB.CHEW PO SCH (09:09)
[2022-04-25] MEDS: Acetaminophen 325 MG TABLET PO PRN ×2 (09:09→20:37)
[2022-04-25 19:10] VITALS: O2SAT 98
[2022-04-25] MEDS: Sennosides 8.6 MG TABLET PO PRN (20:33)
[2022-04-26] MEDS: *HR* Enoxaparin 40 MG/0.4 ML SYRINGE SQ SCH (05:54)
[2022-04-26 06:53] VITALS: BP 118/68; PULSE 71; RESP 15; TEMP 98.1
[2022-04-26] MEDS: Acetaminophen 325 MG TABLET PO PRN (09:39)
[2022-04-26] MEDS: Aspirin 81 MG TAB.CHEW PO SCH (09:39)
[2022-04-26] MEDS: Cyanocobalamin (B-12) 1,000 MCG TABLET PO SCH (09:39)
[2022-04-26] MEDS: atenoloL 25 MG TABLET PO SCH (09:39)
== END 2022-04-26 13:05 | disposition home health service (06) | DRG 560 ==
LOC: INPGRE 17:56 → SUATTDRO 17:56
PROVIDERS: ADMIT Internal Medicine; ATTEND Family Medicine